=== PATIENT | male | born 1935 | race Caucasian/White ===

== ENCOUNTER 2017-06-24 09:35 | Emergency (ER) | payer OTHER ==
[~2017-06-24] VITALS: Ht 160 cm; Wt 68.0 kg
[~2017-06-24 09:35] MED LIST: BETA CAROT10000 UNIT PO; HYDROCHLOROTHIA25 MG PO; LISINOPRIL20 MG ORAL; OMEPRAZOLE20 M3 PO; SIMVASTATIN80 MG PO; VITAMIN D400 UNI2 PO
[2017-06-24] MEDS ORDERED: ROBAXIN-750750 MG PO (09:59)
[2017-06-24] MEDS ORDERED: COLACE100 MG ORAL (09:59)
[2017-06-24] MEDS ORDERED: Fleet's Enema 133ml RECTAL ONE (10:00)
[2017-06-24] MEDS ORDERED: Methocarbamol 750mg tab ORAL ONE (10:00)
[2017-06-24] MEDS ORDERED: LEVAQUIN750 MG ORAL (10:31)
--- NOTE | 2017-06-24 10:31 | Emergency Room Report ---
History of Present Illness General Chief Complaint: General Complaint Source: Patient, Family Member Present Illness HPI 81-year-old male, history of chronic back pain for several years, history of chronic constipation for several years, presenting with back pain and constipation. Patient states that he has been constipated intermittently for the last 4 days,. Heart stool, takes Metamucil. Has not had a colonoscopy in 10 years. Is still passing gas. Denies any abdominal pain. Has no urinary retention or incontinence. No fever no chills no nausea or vomiting. Also states that he has chronic back pain, was told that he needs a physical therapy however has not gone, that pain is not worse than his normal, but his left lower back. Takes Tylenol with some relief. Has still been able to ambulate without difficulty. No numbness or tingling or weakness of his legs He also states he has had a cough x 4 days. no fever no chills. +clear sputum Allergies: Coded Allergies: No Known Allergies (Unverified , 09/15/12) Patient History Past Medical History: see triage record Past Surgical History: none Pertinent Family History: none Reviewed Nursing Documentation: PMH: Agreed, PSxH: Agreed Nursing Documentation-PMH Hx Cardiac Problems: Yes Hx Hypertension: Yes Hx Cancer: No Hx Gastrointestinal Problems: Yes Hx Neurological Problems: No Review of Systems All Other Systems: negative except mentioned in HPI Physical Exam Vital Signs Date Time Temp Pulse Resp B/P (MAP) Pulse Ox O2 Delivery O2 Flow Rate FiO2 06/24/17 09:39 98.2 102 20 159/77 95 Room Air Sp02 EP Interpretation: reviewed, normal General Appearance: normal inspection, well appearing, no apparent distress, alert, GCS 15, non-toxic, other - speaking in complete sentences NAD Head: normocephalic, atraumatic Eyes: bilateral eye normal inspection, bilateral eye PERRL, bilateral eye EOMI ENT: normal ENT inspection, normal pharynx, normal voice, moist mucus membranes Neck: normal inspection, full range of motion, supple Respiratory: no respiratory distress, no retraction, speaking full sentences, other - coarse breath sounds L lung base, chest symmetrical Cardiovascular #1: normal inspection, regular rate, rhythm, no edema, normal capillary refill Cardiovascular #2: 2+ radial (R), 2+ radial (L) Gastrointestinal: normal inspection, non tender, soft, non-distended, no guarding, other - normal bs Genitourinary: no CVA tenderness Musculoskeletal: other - Left-sided lower lumbar paraspinal tenderness, no midline tenderness, full range of motion all extremities, bearing weight on both extremities without difficulty Neurologic: normal inspection, alert, oriented x3, responsive, motor strength/ tone normal, sensory intact, normal gait, speech normal Psychiatric: normal inspection, judgement/insight normal, memory normal Skin: normal inspection, normal color, no rash, warm/dry, well hydrated, normal turgor Medical Decision Making Diagnostic Impression: Primary Impression: Constipation Additional Impressions: Chronic back pain Left lower lobe pneumonia ER Course 81-year-old male, chronic back pain constipation also with cough DDX: Likely musculoskeletal back pain vs. muscular strain vs. sciatica Lumbar fracture is unlikely given patients age, no midline tenderness, no history of trauma, and that patient is ambulatory. Therefore, at this time no imaging is indicated Serious diagnoses such as cord compression, epidural abscess, cauda equina is unlikely in this patient given the clinical scenario and abscess of neurological symptoms or findings. Patient appears nontoxic. Constipation, chronic, not consistent with small bowel obstruction, patient not nauseous vomiting he is passing gas, abdomen is very soft nontender at this time cough: r/o URI/PNEUMONIA Plan: Fleet enema, Robaxin cxr ER course: Patient has remained nontoxic appearing and ambulatory in the ED. Pain improved w/ medications Received enema Repeat abdominal exam very soft nontender cxr: L sided infiltrate he is able to take PO meds. no resp distress. can be DC Disposition: Patient will be discharged to home with prescription of robaxin, [place], levaquin Patient cautioned of the effects of robaxin including possible impairment of physical or mental abilities. Patient was instructed to refrain from operating machinery or driving. Patient is also cautioned on the GI effects of motrin and to take sparingly. Patient verbalized understanding. Strict precautions discussed with patient on when to emergently return to the ED which includes severe/worsening back pain, leg weakness/numbness, urinary retention/incontinence, fever or chills, which may indicate severe illness. He is also instructed to followup with gastroenterology Patient is to follow up with their PMD within 5 days. Patient agrees with plan. Please note that this Emergency Department Report was dictated using [employer] Communications[employer] machine operator single spindle technology software, occasionally this can lead to erroneous entry secondary to interpretation by the dictation equipment. Last Vital Signs Date Time Temp Pulse Resp B/P (MAP) Pulse Ox O2 Delivery O2 Flow Rate FiO2 06/24/17 09:39 98.2 102 20 159/77 95 Room Air Disposition: HOME, SELF-CARE Condition: Improved Scripts Levofloxacin* (LEVAQUIN*) 750 Mg Tablet 750 MG ORAL DAILY, #7 TAB 0 Refills Prov: Ladonna Richardson M.D. 06/24/17 Docusate Sodium* (COLACE*) 100 Mg Capsule 100 MG ORAL THREE TIMES A DAY for 7 Days, #21 CAP 0 Refills Prov: Ladonna Richardson M.D. 06/24/17 Methocarbamol* (ROBAXIN-750*) 750 Mg Tablet 750 MG PO QID, #28 TAB 0 Refills Prov: Ladonna Richardson M.D. 06/24/17 Referrals: NON PHYSICIAN (PCP) Patient Instructions: Constipation, Adult, [id number], Chronic Back Pain Ladonna Richardson M.D. Jun 24, 2017 10:31
--- NOTE | 2017-06-24 11:19 | Diagnostic Imaging Report ---
Indication: Reason For Exam: COUGH Technique: One view of the chest Comparison: none Findings: There is infiltrate at the left lung base. There is a left-sided pleural effusion. Left upper lung, right lung pleural spaces are clear. The heart is upper limits of normal in size Impression: Left basilar infiltrate, suspect pneumonia Of pleural effusion
[2017-06-24] MEDS ORDERED: Magnesium Citrate Liq Btl ORAL ONE (11:45)
[2017-06-24 12:13] LABS: BASOPHILS % (AUTO) 0.3 % (0.0-2.0); EOSINOPHILS % (AUTO) 0.1 % (0.0-3.0); HEMOGLOBIN 12.2 G/DL (14.2-18.0); LYMPHOCYTES % (AUTO) 8.5 % (20.0-45.0); MEAN CORPUSCULAR VOLUME 96 FL (80-99); MONOCYTES % (AUTO) 8.8 % (1.0-10.0); NEUTROPHILS % (AUTO) 82.3 % (45.0-75.0); PLATELET COUNT 341 K/UL (150-450); RED BLOOD COUNT 3.03 M/UL (4.70-6.10); RED CELL DISTRIBUTION WIDTH 10.9 % (11.6-14.8); WHITE BLOOD COUNT 13.2 K/UL (4.8-10.8)
[2017-06-24 12:15] LABS: ANION GAP 7 mmol/L (5-15); BLOOD UREA NITROGEN 11 mg/dL (7-18); CALCIUM 7.7 MG/DL (8.5-10.1); CARBON DIOXIDE 28 MMOL/L (21-32); CHLORIDE 103 MMOL/L (98-107); CREATININE 0.6 MG/DL (0.55-1.30); POTASSIUM 3.6 MMOL/L (3.5-5.1); SODIUM 138 MMOL/L (136-145)
[2017-06-24 12:18] LABS: ALANINE AMINOTRANSFERASE 23 U/L (12-78); ALBUMIN 2.5 G/DL (3.4-5.0); ALBUMIN/GLOBULIN RATIO 0.6 (1.0-2.7); ALKALINE PHOSPHATASE 118 U/L (46-116); ASPARTATE AMINO TRANSFERASE 16 U/L (15-37); BILIRUBIN,TOTAL 0.7 MG/DL (0.2-1.0)
[2017-06-24] MEDS ORDERED: LACTULOSE20 GM/301 ORAL (14:33)
[2017-06-24 14:44] VITALS: BP 159/77
--- NOTE | 2017-06-25 19:02 | Diagnostic Imaging Report ---
Indication: Elbow pain Technique: CT of the abdomen and pelvis utilizing automated exposure control with intravenous contrast. Venous scanning performed. CT dose: Total DLP 633.6 mGycm; CTDI vol 13.38 mGy Comparison: None Findings: Scans through the lung bases demonstrates dense consolidation in the left lower lobe with small left pleural effusion. Differential considerations include infectious infiltrate, neoplasm or infarct. Heart is mildly enlarged. There are coronary arterial calcifications. Subcentimeter hypodensities noted within the liver too small to fully characterize but possibly representing simple hepatic cysts. Portal veins and hepatic veins appear patent. There is a calcified gallstone in the gallbladder. No CT evidence to suggest acute cholecystitis. Spleen and adrenal glands are unremarkable in appearance. Multiple calcifications noted throughout the pancreas. Multiple simple appearing renal cysts are noted bilaterally. No urinary tract stones or hydronephrosis. Bladder is decompressed, limiting its evaluation. Prostate is moderately enlarged and heterogeneous, particularly the central gland. There is no evidence of bowel obstruction. No free intraperitoneal fluid or air is seen. There is moderate stool within the colon. No appreciable focal or diffuse abnormal bowel wall thickening. Appendix is normal. Abdominal aorta is normal in caliber with moderate to severe atherosclerotic calcification. No bulky abdominopelvic adenopathy is appreciated. There are multilevel degenerative changes of the thoracolumbar spine with grade 1 anterolisthesis of L4 on L5. Impression: * No evidence of bowel obstruction, appendicitis or diverticulitis. Moderate stool noted throughout the colon. * Cholelithiasis without CT evidence to suggest acute cholecystitis. * Prostatomegaly. * Small left pleural effusion and dense consolidation in the left lower lobe which may represent pneumonia, neoplasm or infarct. Clinical correlation and follow-up exam recommended. This corresponds with the statrad preliminary report. The CT scanner at [facility] is accredited by the [employer] and the scans are performed using protocols designed to limit radiation exposure to as low as reasonably achievable to attain images of sufficient resolution adequate for diagnostic evaluation.
== END 2017-06-24 14:47 | disposition home or self-care (01) ==
LOC: EMR 10:14
DX: K59.09 Other constipation (principal); G89.29 Other chronic pain; M54.5 Low back pain; J18.9 Pneumonia, unspecified organism; I10 Essential (primary) hypertension
CPT/HCPCS: 36415; 71045; 74177; 80053; 83690; 85025; 99284; Q9967

== ENCOUNTER 2019-01-01 14:04 | Emergency (ER) | payer OTHER ==
[~2019-01-01] VITALS: Ht 170.2 cm; Wt 72.6 kg
[~2019-01-01 14:04] MED LIST changes: +COLACE100 MG ORAL; +LACTULOSE20 GM/301 ORAL; +LEVAQUIN750 MG ORAL; +ROBAXIN-750750 MG PO
[2019-01-01 14:27] VITALS: BP 147/79
--- NOTE | 2019-01-01 14:45 | NUR ---
ED Nurse Note: PT. AAOX4. AMBULATORY. WALKED IN TO ER DUE TO L THIGH PAIN X5 DAYS. DENIES ANY RECENT INJURY. NO REDNESS NOTED ON THE AFFECTED SITE
[2019-01-01] MEDS ORDERED: Ketorolac 30mg Inj IM ONE (15:00)
--- NOTE | 2019-01-01 15:28 | NUR ---
ED Nurse Note: US at the bedside
--- NOTE | 2019-01-01 16:11 | Diagnostic Imaging Report ---
Indication: Left lower extremity pain and swelling. Technique: Duplex Doppler imaging performed from the left common femoral vein to the popliteal vein. FINDINGS: Normal compressibility demonstrated from the common femoral vein to the popliteal vein. Respiratory phasicity and good augmentation demonstrated on waveform analysis. There is no evidence of thrombosis. IMPRESSION: No evidence of deep venous thrombosis within the left lower extremity.
--- NOTE | 2019-01-01 16:22 | Emergency Room Report ---
History of Present Illness General Chief Complaint: Pain Source: Medical Record Present Illness HPI 83-year-old male presents to the emergency department complaining of 9 out of 10 severity posterior thigh pain progressive x5 days. Patient reports tightness in the muscle of the posterior left thigh he denies trauma or fall he denies strenuous activities he denies swelling, erythema, skin color changes of the lower extremity. Patient denies low back pain. States pain is exacerbated when flexing the left leg and feels better when the leg is fully extended. No other aggravating or relieving factors at this time Allergies: Coded Allergies: No Known Allergies (Unverified , 09/15/12) Patient History Past Medical History: see triage record Past Surgical History: none Pertinent Family History: none Immunizations: UTD Reviewed Nursing Documentation: PMH: Agreed; PSxH: Agreed Nursing Documentation-PMH Past Medical History: No History, Except For Hx Cardiac Problems: Yes Hx Hypertension: Yes Hx Cancer: No Hx Gastrointestinal Problems: Yes Hx Neurological Problems: No Review of Systems All Other Systems: negative except mentioned in HPI Physical Exam Vital Signs Date Time Temp Pulse Resp B/P (MAP) Pulse Ox O2 Delivery O2 Flow Rate FiO2 01/01/19 14:27 97.9 65 19 147/79 97 Room Air Sp02 EP Interpretation: reviewed, normal General Appearance: no apparent distress, alert, GCS 15, non-toxic Head: normocephalic, atraumatic Eyes: bilateral eye normal inspection, bilateral eye PERRL ENT: hearing grossly normal, normal voice Neck: full range of motion Respiratory: chest non-tender, lungs clear, normal breath sounds, speaking full sentences Cardiovascular #1: regular rate, rhythm, no edema, normal capillary refill Cardiovascular #2: 2+ dorsalis pedis (R), 2+ dorsalis pedis (L) Musculoskeletal: back normal, gait/station normal, normal range of motion, tender - the tendon of the left hamstring. no left leg bony ttp, no swelling, no obvious deformity. NVI. pain with flexion of the left LE. Neurologic: alert, oriented x3, responsive, motor strength/tone normal, sensory intact, speech normal, grossly normal Psychiatric: judgement/insight normal Skin: no rash Medical Decision Making PA Attestation Dr. Koenig is my supervising Physician whom patient management has been discussed with. Diagnostic Impression: Primary Impression: Hamstring tendonitis of left thigh ER Course 83-year-old male presents to the emergency department complaining of 9 out of 10 severity posterior thigh pain progressive x5 days. Patient reports tightness in the muscle of the posterior left thigh he denies trauma or fall he denies strenuous activities he denies swelling, erythema, skin color changes of the lower extremity. Patient denies low back pain. States pain is exacerbated when flexing the left leg and feels better when the leg is fully extended. No other aggravating or relieving factors at this time Ddx considered but are not limited to Fracture, dislocation, contusion, Sprain/ Strain/Spasm, tendonitis, DVT, sciatica just to name a few. Vital signs: are WNL, pt. is afebrile H&PE are most consistent with musculoskeletal injury will perform imaging to r/ o fractures/dislocations. ORDERS: - X-ray not warranted at this time the patient does not exhibit bony tenderness to palpation -Left Lower extremity venous duplex ultrasound was negative for DVT ED INTERVENTIONS: -Toradol IM DISCHARGE: At this time pt. is stable for d/c to home. Will provide printed patient care instructions, and any necessary prescriptions. Care plan and follow up instructions have been discussed with the patient prior to discharge. CT/MRI/US Diagnostic Results CT/MRI/US Diagnostic Results : Imaging Test Ordered: Venous Duplex US of the Left Lower Leg Impression Negative for DVT Last Vital Signs Date Time Temp Pulse Resp B/P (MAP) Pulse Ox O2 Delivery O2 Flow Rate FiO2 01/01/19 14:27 97.9 65 19 147/79 (101) 97 Room Air Disposition: HOME, SELF-CARE Condition: Stable Scripts Diclofenac Epolamine (Diclofenac Epolamine) 1 Each Patch.td12 1 EACH TD DAILY, #30 PATCH Prov: Joaquina Martinez 01/01/19 Acetaminophen With Codeine (T#3) (TYLENOL #3 TAB*) Y Tab 1 TAB ORAL Q6HR PRN for For Pain, #9 TAB Prov: Joaquina Martinez 01/01/19 Patient Instructions: Muscle Pain, Adult Additional Instructions: Take medications as directed. Follow up with a Primary Care Provider in 3-5 days, even if your symptoms have resolved. --Please review list of primary care clinics, if you do not already have a primary care provider Return sooner to ED if new symptoms occur, or current symptoms become worse. - Please note that this Emergency Department Report was dictated using [employer] & instrumentation supervisor technology software, occasionally this can lead to erroneous entry secondary to interpretation by the dictation equipment. Joaquina Martinez Jan 01, 2019 16:22
[2019-01-01] MEDS ORDERED: ACETAMINOPHEN-1 EAC1 ORAL (16:28)
[2019-01-01] MEDS ORDERED: DICLOFENAC EPO1 EACH TD (16:28)
[2019-01-01 16:35] VITALS: BP 132/68
--- NOTE | 2019-01-01 16:35 | NUR ---
ER DISCHARGE NOTE: Patient is cleared to be discharged per ERMD, pt is aox4, on room air, with stable vital signs. pt was given dc and prescription instructions, pt was able to verbalize understanding, pt id band removed. pt is able to ambulate with steady gait. pt took all belongings.
== END 2019-01-01 16:35 | disposition home or self-care (01) ==
LOC: EMR 15:01
DX: M76.892 Other specified enthesopathies of left lower limb, excluding foot (principal); I10 Essential (primary) hypertension
CPT/HCPCS: 93971; 96372; 99284; J1885